=== PATIENT | male | born 1985 | race Caucasian/White ===

== ENCOUNTER 2018-04-15 19:26 | Emergency (ER) | payer MEDICAID ==
[~2018-04-15] VITALS: Ht 182.9 cm; Wt 68.2 kg
[2018-04-15 19:31] VITALS: Ht 182.9 cm; Wt 68.2 kg
[2018-04-15] MEDS ORDERED: VISTARIL50 MG PO (19:34)
[2018-04-15] MEDS ORDERED: NEURONTIN800 MG PO (19:35)
[2018-04-15] MEDS ORDERED: SEROQUEL300 MG PO (19:35)
[2018-04-15] MEDS ORDERED: ZOLOFT100 MG PO (19:36)
[2018-04-15] MEDS ORDERED: STRATTERA40 MG PO (19:36)
[2018-04-15 20:05] LABS: BASOPHILS 0.2 % (0-2); EOSINOPHILS 0.8 % (0-7); HEMATOCRIT 39.6 % (42.0-54.0); HEMOGLOBIN 13.9 g/dL (13.5-17.5); IMMATURE GRANULOCYTES 0.1 % (0-5); LYMPHOCYTES 20.5 % (15-50); MCH 31.8 pg (26.0-34.0); MCHC 35.1 g/dL (31.0-37.0); MCV 90.6 fL (80.0-100.0); MEAN PLATELET VOLUME 9.8 fL (7.4-10.4); MONOCYTES 9.8 % (2-11); NEUTROPHILS 68.6 % (40-80); PLATELET COUNT 265 10x3/uL (130-400); RBC 4.37 10x6/uL (4.20-6.10); RDW 13.4 % (11.5-14.5); WBC 8.5 10x3/uL (4.8-10.8)
[2018-04-15 20:23] LABS: APPEARANCE CLEAR (CLEAR); COLOR DK YELLOW (YELLOW)
[2018-04-15 20:24] LABS: BILIRUBIN NEGATIVE (NEGATIVE); GLUCOSE NEGATIVE (NEGATIVE); KETONE NEGATIVE (NEGATIVE); NITRITE NEGATIVE (NEGATIVE); PROTEIN 1+ mg/dL (NEGATIVE); UROBILINOGEN NORMAL (NORMAL)
[2018-04-15 20:33] LABS: CALC OSMOLALITY 276 mosm/kg (275-300); CALCIUM 8.9 mg/dL (8.5-10.1); CARBON DIOXIDE 27.8 mmol/L (21.0-32.0); CHLORIDE - SERUM 102 mmol/L (98-107); CREATININE - SERUM 1.1 mg/dL (0.6-1.3); GLUCOSE 131 mg/dL (74-106); POTASSIUM - SERUM 4.3 mmol/L (3.5-5.1); SODIUM 137 mmol/L (136-145); THYROID STIMULATING HORMONE 2.23 uIU/mL (0.36-3.74); UREA NITROGEN 16 mg/dL (7-18); eGFR NON AFRICAN AMERICAN 82 mL/min (90-120)
[2018-04-15 20:37] LABS: UDS - AMPHET POSITIVE QUAL (NEGATIVE); UDS - BARB NEGATIVE QUAL (NEGATIVE); UDS - BENZO POSITIVE QUAL (NEGATIVE); UDS - COCAINE NEGATIVE QUAL (NEGATIVE); UDS - OPIATE POSITIVE QUAL (NEGATIVE); UDS - PCP NEGATIVE QUAL (NEGATIVE); UDS - THC NEGATIVE QUAL (NEGATIVE)
[2018-04-16 02:24] VITALS: BP 112/71
== END 2018-04-16 02:25 | disposition home or self-care (01) ==
LOC: D.ER 19:26
PROVIDERS: Emergency Medicine
DX: F15.129 Other stimulant abuse with intoxication, unspecified (principal); F23 Brief psychotic disorder

== ENCOUNTER 2018-05-14 15:37 | Emergency (ER) | payer BC ==
[~2018-05-14] VITALS: Ht 182.9 cm; Wt 77.3 kg
[~2018-05-14 15:37] MED LIST: NEURONTIN800 MG PO; SEROQUEL300 MG PO; STRATTERA40 MG PO; VISTARIL50 MG PO; ZOLOFT100 MG PO
[2018-05-14 15:48] VITALS: Ht 182.9 cm; Wt 77.3 kg
[2018-05-14 17:08] LABS: APPEARANCE CLEAR (CLEAR); COLOR YELLOW (YELLOW)
[2018-05-14 17:09] LABS: BILIRUBIN NEGATIVE (NEGATIVE); GLUCOSE NEGATIVE (NEGATIVE); KETONE NEGATIVE (NEGATIVE); NITRITE NEGATIVE (NEGATIVE); PROTEIN NEGATIVE (NEGATIVE); UROBILINOGEN NORMAL (NORMAL)
[2018-05-14] MEDS ORDERED: MIRALAX17 GM PO (19:32)
[2018-05-14 19:46] VITALS: BP 110/71
== END 2018-05-14 19:46 | disposition home or self-care (01) ==
LOC: D.ER 15:37
PROVIDERS: Family Medicine
DX: K59.03 Drug induced constipation (principal); Z86.59 Personal history of other mental and behavioral disorders

== ENCOUNTER 2018-11-30 12:00 | Emergency (ER) | payer MEDICAID ==
[~2018-11-30] VITALS: Ht 182.9 cm; Wt 72.7 kg
[~2018-11-30 12:00] MED LIST changes: +MIRALAX17 GM PO
[2018-11-30 12:09] VITALS: Ht 182.9 cm; Wt 72.7 kg
[2018-11-30] MEDS ORDERED: KLONOPIN1 MG PO (12:15)
[2018-11-30] MEDS ORDERED: ADDERALL 20 MG20 M1 PO (12:16)
[2018-11-30] MEDS ORDERED: BUPRENORPHIN-N1 EACH SL (12:16)
[2018-11-30] MEDS ORDERED: CHRONULAC30 ML PO (14:47)
[2018-11-30 15:27] VITALS: BP 123/68
== END 2018-11-30 15:28 | disposition home or self-care (01) ==
LOC: D.ER 12:00
DX: K59.00 Constipation, unspecified (principal); F17.200 Nicotine dependence, unspecified, uncomplicated

== ENCOUNTER 2019-03-24 21:02 | Emergency (ER) | payer MEDICAID ==
[~2019-03-24] VITALS: Ht 182.9 cm; Wt 77.3 kg
[~2019-03-24 21:02] MED LIST changes: +ADDERALL 20 MG20 M1 PO; +BUPRENORPHIN-N1 EACH SL; +CHRONULAC30 ML PO; +KLONOPIN1 MG PO
[2019-03-24 21:39] VITALS: Ht 182.9 cm; Wt 77.3 kg
[2019-03-24] MEDS ORDERED: INVEGA SUS78 MG/0.5 IM (21:41)
[2019-03-24 22:00] LABS: APPEARANCE CLEAR (CLEAR); BILIRUBIN NEGATIVE (NEGATIVE); COLOR YELLOW (YELLOW); GLUCOSE NEGATIVE (NEGATIVE); KETONE NEGATIVE (NEGATIVE); NITRITE NEGATIVE (NEGATIVE); PROTEIN NEGATIVE (NEGATIVE); SPECIFIC GRAVITY 1.015 (1.005-1.020); UROBILINOGEN NORMAL (NORMAL)
[2019-03-25 00:48] VITALS: BP 124/65
[2019-03-28 15:10] LABS: CHLAMYDIA TRACHOMATIS, NAA Negative (Negative)
[2019-05-07] MEDS ORDERED: [UNRECOGNIZED DRUG - OTHER] SL (15:04)
[2019-05-07] MEDS ORDERED: PALIPERIDONE PALMITATE INJ (15:05)
[2019-05-07] MEDS ORDERED: PROBIOTIC BLEN1 EACH PO (15:07)
[2019-05-13 09:14] VITALS: Ht 182.9 cm; Wt 77.3 kg
== END 2019-03-25 00:49 | disposition home or self-care (01) ==
LOC: D.ER 21:02
PROVIDERS: Family Medicine
DX: I86.1 Scrotal varices (principal); K59.00 Constipation, unspecified

== ENCOUNTER 2019-05-08 07:55 | Day surgery (SDC) | payer MEDICAID ==
[~2019-05-08] VITALS: Ht 185.4 cm; Wt 74.4 kg
[~2019-05-08 07:55] MED LIST changes: +INVEGA SUS78 MG/0.5 IM; +PALIPERIDONE PALMITATE INJ; +PROBIOTIC BLEN1 EACH PO; +[UNRECOGNIZED DRUG - OTHER] SL
--- NOTE | 2019-05-08 09:00 | NUR ---
PATIENT'S BEHAVIOR AND ASSESSMENT IS AT LOW RIS OER PSYCHIATRIST. RESOURCES WERE GIVEN TO PATIENT AND WITH NO FURTHER ORDES AT THIS TIME. RESOURCES REVIEWED AND PATIENT VERBALIZED UNDERSTANDING. 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 PATIENT ONLY SLIT HIS WRIST 5-6 TIMES IN 2013, DUE TO HOMELESSNESS, ANXIETY, FAMILY CONFLICTUAL RELATIONSHIPS, AND NO JOB. PATIENT DENIES ANY THOUGHTS OF WANTING TO KILL HIMSELF. THEY ARE ALSO GOING FOR COUNSELING.
[2019-05-08 09:04] VITALS: BP 117/72; Ht 185.4 cm; Wt 74.4 kg
--- NOTE | 2019-05-08 14:44 | OP ---
PATIENT NAME: GIL SCHULTZ MEDICAL RECORD: [id number] :83 LOCATION:[facility] ADMISSION DATE: SURGEON: FEDERICO SEARS MD DATE OF OPERATION: 05/08/2019 SURGEON: Federico Sears MD ANESTHESIA: TIVA by Gerardo Chacon CRNA. DIAGNOSIS: Interstitial cystitis. PROCEDURES: Cystoscopy, intravesical Rimso instillation. FINDINGS: No urethral strictures. Nonobstructive prostate and bladder neck. He has diffuse bladder inflammation without any bladder tumors. Single ureteral orifices bilaterally. BLOOD LOSS: None. CLINICAL HISTORY: This is a 33-year-old male, who was in drug rehabilitation. He has a chief complaint of urinary frequency with difficulty voiding and difficulty with ejaculation. This has been present for several years. He has a slow urinary flow. He notes a thin stream. Significantly, he has had 3 episodes of chlamydia and 1 episode of gonorrhea or urethritis. Therefore, I suspected that he may have a urethral stricture. He comes today for cystoscopy and treatment of urethral stricture if present. He is not allergic to any medications. 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 DESCRIPTION OF PROCEDURE: The patient was given IV sedation. He was then placed into the lithotomy position and prepped and draped. A 17-New Zealander cystoscope with 30-degree lens was used for visualization. No penile urethral strictures were seen. The prostatic urethra was not obstructive. Other findings as outlined above. Going into the bladder, the bladder is diffusely inflamed. No bladder tumors were seen. The bladder was then emptied through the cystoscope sheath and the scope was removed. We inserted a 16-[place] Zealander red rubber catheter into the urethra up into the bladder and through the lumen of this catheter, we instilled 50 mL of intravesical Rimso solution. The catheter was then removed, leaving the Rimso solution in the bladder. The patient will void this solution out in 15 minutes. I will see him in followup in 2 weeks' time. TRANSINT:[id number] Voice Confirmation ID: [id number] DOCUMENT ID: [id number] FEDERICO SEARS MD at 1444 CC: [id number] DICTATION DATE: 05/08/19 1047 CUT FILE CLERK: 05/08/19 1256 [facility] 05/08/[address] [address]
[2019-05-09] MEDS ORDERED: PHENAZOPYRIDIN200 MG PO (08:59)
[2019-05-09] MEDS ORDERED: CIPRO250 MG PO (08:59)
== END 2019-05-08 11:45 | disposition home or self-care (01) ==
LOC: D.OPS 07:55 → D.PAN 09:10 → D.OPS 11:45 → D.PAN 12:45
PROVIDERS: ATTEND Urology
DX: N30.10 Interstitial cystitis (chronic) without hematuria (principal)

== ENCOUNTER 2019-05-09 08:25 | Outpatient (CLI) | payer MEDICAID ==
[~2019-05-09] VITALS: Ht 185.4 cm; Wt 75.0 kg
[2019-05-09 08:40] VITALS: Ht 185.4 cm; Wt 75.0 kg
[2019-05-09] MEDS ORDERED: CIPRO250 MG PO (08:59)
[2019-05-09] MEDS ORDERED: PHENAZOPYRIDIN200 MG PO (08:59)
[2019-05-09 09:32] LABS: APPEARANCE CLEAR (CLEAR); COLOR STRAW (YELLOW)
[2019-05-09 09:33] LABS: BILIRUBIN NEGATIVE (NEGATIVE); GLUCOSE NEGATIVE (NEGATIVE); KETONE NEGATIVE (NEGATIVE); NITRITE NEGATIVE (NEGATIVE); PROTEIN NEGATIVE (NEGATIVE); UROBILINOGEN NORMAL (NORMAL)
[2019-05-09 09:41] VITALS: BP 121/80
== END 2019-05-09 09:40 | disposition home or self-care (01) ==
LOC: D.ER 08:25 → D.LABREF 08:25 → D.ER 09:40 → EDSTATUS 18:41
PROVIDERS: ATTEND Emergency Medicine
DX: R30.0 Dysuria (principal); R31.9 Hematuria, unspecified

== ENCOUNTER 2019-05-13 09:10 | Emergency (ER) | payer MEDICAID ==
[~2019-05-13] VITALS: Ht 185.4 cm; Wt 75.0 kg
[~2019-05-13 09:10] MED LIST changes: +CIPRO250 MG PO; +PHENAZOPYRIDIN200 MG PO
[2019-05-13 09:14] VITALS: Ht 185.4 cm; Wt 75.0 kg
[2019-05-13 09:53] LABS: APPEARANCE CLEAR (CLEAR); COLOR STRAW (YELLOW)
[2019-05-13 09:54] LABS: BILIRUBIN NEGATIVE (NEGATIVE); GLUCOSE NEGATIVE (NEGATIVE); KETONE NEGATIVE (NEGATIVE); NITRITE NEGATIVE (NEGATIVE); PROTEIN NEGATIVE (NEGATIVE); UROBILINOGEN NORMAL (NORMAL)
[2019-05-13 09:56] LABS: BACTERIA FEW /hpf (NEGATIVE); RED CELLS - URINE 0-5 /hpf (0-5); WHITE CELLS - URINE RARE /hpf (NEGATIVE)
[2019-05-13 11:17] VITALS: BP 118/68
[2019-05-15 21:06] LABS: CHLAMYDIA TRACHOMATIS, NAA Negative (Negative)
== END 2019-05-13 11:18 | disposition home or self-care (01) ==
LOC: D.ER 09:10
PROVIDERS: Emergency Medicine
DX: R33.8 Other retention of urine (principal); F17.290 Nicotine dependence, other tobacco product, uncomplicated

== ENCOUNTER → 2019-07-03 10:19 | Outpatient (CLI) | payer MEDICAID ==
[2019-05-13 09:14] VITALS: BMI 21.8
--- NOTE | 2019-07-10 14:03 | EC ---
PATIENT:GIL SCHULTZ DATE OF SERVICE: 07/03/19 SEX: M MEDICAL RECORD: [id number] DATE OF : [birth year] [facility] AGE OF PATIENT: 34 ADMISSION DATE: 07/03/19 REFERRING PHYSICIAN: INTERPRETING PHYSICIAN: LEON HILLS MD ECHOCARDIOGRAM REPORT ECHO CHARGES 4 ECHO COMPLETE Date: 07/03/19 CLINICAL DIAGNOSIS: ANGINA/CP/MURMUR H/O METH USE ECHOCARDIOGRAPHIC MEASUREMENTS (adult normal given) AC root (d.<3.7cm) 3.4 cm LV Septum d (<1.2 cm> 0.9 cm Valve Excursion 2.5 cm LV Septum (systole) 1.2 cm Left Atria (s.<4.0cm> 3.8 cm LVPW d(<1.2cm) 0.9 cm RV (d.<2.3cm) 2.3 cm LVPW (sytole) 1.5 cm LV diastole(<5.6CM) 5.6 cm MV E-F(>70mm/sec) cm LV systole 3.5 cm LVOT Diameter 2.0 cm MV exc.(>10mm) cm Est.ejection fraction (50-75%) % DOPPLER: LVIT cm/sec A 46.0 cm/sec E 52.0 cm/sec LA cm/sec RVSP 22.2 mmHg LVOT 111 cm/sec AOP1/2T m/s Asc. Ao 117 cm/sec RVOT 89.0 cm/sec RA cm/sec PA 103 cm/sec AV Gradient Peak 5.5 mmHg AV Mean 2.9 mmHg AV Area 2.8 cm MV Gradient Peak 2.2 mmHg MV Mean 1.0 mmHg MV Area cm COMMENTS: OP - HC Roll Over Loader: 1 ZEYNEP ACOSTAOE Vulcanizer Operator: 3 Dr. Linn TAPE# PACS Pericardial Effusion N DATE OF SERVICE: Adequate 2-D echo, color-flow and spectral Doppler, and M-mode. No LVH. LV internal dimension is normal. Wall motion is normal. EF is greater than or equal to 55%. Aortic valve is tricuspid. No evidence of stenosis by Doppler interrogation. Left atrium normal at 3.8 cm. Mitral valve shows no prolapse. Trace MR. Right-sided chambers grossly normal. Trace TR. TRANSINT:[id number] Voice Confirmation ID: [id number] DOCUMENT ID: [id number] ECHOCARDIOGRAM REPORT [id number] GIL SCHULTZ GREGORY A MD at 1403 CC: [id number] DICTATION DATE: 07/09/19 1308 PHYSICAL MEDICINE SPECIALIST: 07/09/19 1645 DEP CLI 07/03/19 [place] [id number] [place] [id number]
== END | disposition home or self-care (01) ==
LOC: D.HCCECHO 10:19
PROVIDERS: ATTEND Internal Medicine Interventional Cardiology
DX: I20.9 Angina pectoris, unspecified (principal)

== ENCOUNTER 2019-08-26 22:50 | Emergency (ER) | payer MEDICAID ==
[~2019-08-26] VITALS: Ht 185.4 cm; Wt 75.0 kg
[2019-08-26 23:09] VITALS: Ht 185.4 cm; Wt 75.0 kg
[2019-08-26] MEDS ORDERED: CHRONULAC30 ML PO (23:14)
[2019-08-26] MEDS ORDERED: MIRALAX17 GM PO (23:19)
[2019-08-26] MEDS ORDERED: COLACE100 MG PO (23:19)
[2019-08-26 23:52] VITALS: BP 132/88
== END 2019-08-26 23:52 | disposition home or self-care (01) ==
LOC: D.ER 22:50
DX: K59.00 Constipation, unspecified (principal)

== ENCOUNTER 2019-08-31 02:37 | Emergency (ER) | payer MEDICAID ==
[~2019-08-31] VITALS: Ht 185.4 cm; Wt 75.0 kg
[~2019-08-31 02:37] MED LIST changes: +COLACE100 MG PO
[2019-08-31 02:45] VITALS: Ht 185.4 cm; Wt 75.0 kg
[2019-08-31 03:25] VITALS: BP 125/88
== END 2019-08-31 03:25 | disposition home or self-care (01) ==
LOC: D.ER 02:37
DX: F20.9 Schizophrenia, unspecified (principal); F22 Delusional disorders